=== PATIENT | female | born 1985 | race Two or more races ===

== ENCOUNTER 2025-02-12 18:15 | Emergency (ER) | payer OTHER ==
[~2025-02-12] VITALS: Ht 165.1 cm; Wt 111.1 kg
[2025-02-12] MEDS ORDERED: ENALAPRIL MALEAT5 MG (19:09)
[2025-02-12] MEDS ORDERED: HYDROCHLOROTHIA25 MG (19:10)
[2025-02-12 21:47] LABS: BASO % 1.1 % (0.1-1.2); EOS # 0.18 (0.04-0.54); EOS % 3.8 % (0.7-7.0); LYMPH # 1.21 (1.18-3.74); LYMPH % 25.6 % (19.3-53.1); MEAN PLATELET VOLUME 9.50 fl (9.4-12.4); MONO # 0.82 (0.24-0.82); NEUT # 2.45 (1.56-6.13); NEUT % 51.9 % (34.0-71.1); RED CELL DISTRIBUTION WIDTH 13.4 % (11.6-14.4)
[2025-02-12 21:51] LABS: MONO % 17.4 % (4.7-12.5)
[2025-02-12 22:18] LABS: ALT/SGPT 51.0 U/L (12-78); AST/SGOT 25.0 U/L (15-37); BILIRUBIN TOTAL 0.22 mg/dL (0.3-1.2); BUN CREA RATIO 17.0 (7.0-25.0); CREATININE SERUM 1.07 mg/dL (0.55-1.02); GFR 56.51; GLOBULINA 4.1 G/DL (2.4-3.5); GLUCOSE FASTING 107.0 mg/dL (65-100); OSMOLALITY SERUM 289.0 MOSM/KG (275-295)
[2025-02-12 22:23] LABS: URINE APPEARANCE Clear; URINE BILIRRUBIN Negative (NEGATIVE); URINE BLOOD Large; URINE COLOR Yellow; URINE GLUCOSE Negative (NEGATIVE); URINE KETONE Trace (NEGATIVE); URINE LEUKOCYTE Trace; URINE NITRATE Negative; URINE PROTEIN Negative (NEGATIVE); URINE UROBILINOGEN 1.0 E.U./dl
[2025-02-12 22:27] LABS: URINE BACTERIA 2001.2 uL (0.0-1933); URINE EPITHELIAL CELLS 19.9 uL (0.0-38.8); URINE RBC 112.4 uL (0.0-20.8); URINE WBC 39.0 uL (0.0-23.2)
[2025-02-12 22:29] LABS: URINE CAST 0.29 uL (0.0-1.40)
[2025-02-13] MEDS ORDERED: LEVOFLOXACIN750 MG PO (00:29)
[2025-02-13] MEDS ORDERED: CEFTRIAXONE SODIUM 2,000 MG VIAL IV ONE (00:30)
[2025-02-13] MEDS ORDERED: IBUPROFEN600 MG PO (00:46)
== END 2025-02-13 01:22 | disposition home or self-care (01) ==
LOC: ER 18:15
PROVIDERS: Preventive Medicine Public Health & General Preventive Medicine
DX: N39.0 Urinary tract infection, site not specified (principal); B96.20 Unspecified Escherichia coli [E. coli] as the cause of diseases classified elsewhere; I10 Essential (primary) hypertension; Z88.8 Allergy status to other drugs, medicaments and biological substances